=== PATIENT | female | born 1950 | race Caucasian/White ===

== ENCOUNTER 2023-09-16 13:31 | Emergency (ER) | payer OTHER, SELFPAY ==
[2023-09-16 13:36] VITALS: BP 117/63
--- NOTE | 2023-09-16 17:05 | ED.GENMED ---
History of Present Illness
General
Chief Complaint: Eye Problems
Time Seen by Provider: 09/16/23 16:52
Travel History
Have you had any contact with someone who has COVID-19?: No
Do you have any symptoms of coronavirus? Fever > 100 degrees, chills, cough, shortness of breath, sore throat, loss of taste or smell, muscle aches, or headache?: No
History of Present Illness
History of Present Illness:
73-year-old female with history of hypertension, hyperlipidemia, coronary artery disease status post stent, and [id number] diabetes presents to the emergency department for evaluation of intermittent episodes of left eye visual blurriness
ongoing for the past 2 months. She estimates having less than 1 episode per week but they have increased recently. Saw her lobbyist today and was referred to the emergency department for stroke evaluation. Denies any symptoms at present.
No headaches, diplopia, extremity paresthesias, or speech difficulty
Past History
Past History
ED Past Medical History: CAD, Hypercholesterolemia, IA (10 year ago) and Other (Seasonal allergies)
ED Past Surgical History: Cardiac (PTCA with stent), Gynecological (Tubal ligation) and Orthopedic (Left rotator cuff repair)
Social History
Tobacco: Non-smoker
Alcohol: None
Personal:
Living: with family
Employment: Employed
Family History
Family History: CAD
Review of Systems
Review of Systems
Allergies reviewed?: Yes
All Other Systems: ROS reviewed and negative except as documented in HPI and ROS
Phy Exam
Physical Exam
Physical Exam:
GEN: Well appearing, NAD, WDWN
HEENT: Pupils dilated bilaterally, residual from lobbyist office, oral mucosa moist, no scleral icterus, no nasal congestion
Cardiac: Regular rate
Lung: No respiratory distress, no tachypnea
MSK: No gross deformity or injuries
Skin: Good color, no pallor or jaundice, no rashes
Neuro: AO x3; CN II-XII grossly intact. BUE strength 5/5 in all rodriguez, sensation intact and symmetric. BLE strength 5/5 in all rodriguez, sensation intact and symmetric
Psych: Calm, cooperative
Course
Orders/Labs/Results
Orders:
Orders
09/16/23 17:05
CT Head & Neck Angio W/wo IV Urgent
Comment:
Reason For Exam: L eye amaurosis
09/16/23 17:22
Complete Blood Count/With Diff Urgent
Comprehensive Metabolic Panel Urgent
Abnormal Lab Results
09/16/23
17:22
MCHC 32.8 L g/dL
(33.0-37.0)
BUN 33 H mg/dl
(7-17)
Glucose 118 H mg/dl
(70-99)
Calcium 10.3 H mg/dl
(8.4-10.2)
09/16/23 17:22
09/16/23 17:22
Vital Signs
Initial and Last Documented VS:
Initial Vital Signs
Temp Pulse Resp BP Pulse Ox
99.5 F 66 18 117/63 97
09/16/23 13:36 09/16/23 13:36 09/16/23 13:36 09/16/23 13:36 09/16/23 13:36
Last Documented Vital Signs
Temp Pulse Resp BP Pulse Ox
99.5 F 55 18 134/68 100
09/16/23 13:36 09/16/23 19:16 09/16/23 19:16 09/16/23 19:16 09/16/23 19:16
MDM/Problems Addressed
MDM/Problems Addressed:
No clinically significant carotid stenosis noted on imaging. Highly unlikely that the patient's presentation represents true amaurosis fugax given lack of visual loss and simply blurry vision. She has no diplopia concerning for intracranial
aneurysm and no headaches. Do not feel that there is any need for hospital admission particular given that she is on antiplatelets and statins at this point. Will recommend outpatient primary care follow-up to discuss potential benefit of brain
MRI for further workup of her intermittent unilateral blurry vision
*Critical Care Note
Total Time (30-74mins, 75-104mins- exclusive of procedures): Not Applicable
ED Attending Note
-
Portions of this chart may have been created with voice recognition software.� Occasional wrong word or��sound alike� substitutions may have occurred due to the inherent limitations of voice recognition software.
Discharge Plan
Departure
Patient Disposition: Home (Routine Discharge)
Date of Disposition: 09/16/23
Time of Disposition: 19:07
Patient with high blood pressure during this ER visit?: No
Discharge Problem:
Blurred vision, left eye
Prescriptions:
No Action
multivitamin [Daily Multiple] 1 EACH tablet
1 ea PO DAILY
Apple Cider Vinegar
450 mg PO BID
atorvastatin [Lipitor] 40 MG tablet
40 mg PO HS
metformin 500 MG tablet
500 mg PO BID
aspirin 325 MG tablet
325 mg PO HS
lisinopril 20 MG tablet
20 mg PO HS
acetaminophen [Tylenol Arthritis] 650 MG tablet extended release
2 mg PO HS
zinc 50 MG tablet
50 mg PO DAILY
latanoprost (PF) 7.5 ML drops
1 drp BOTH EYES HS
magnesium oxide 400 MG tablet
400 mg PO DAILY
Brimonidine Tartrate
1 drp BOTH EYES BID
Cinnamon
1,000 mg PO BID
Tumeric/Ging/Paxton/Oreg/Capryl [Candicidal Capsule] 1 EACH Capsule
1,000 mg PO BID
Vitamin C:
1,000 mg PO DAILY
fluoxetine 20 MG capsule
40 mg PO QPM
acetaminophen 325 MG tablet
650 mg PO Q4HPRN PRN (Reason: mild pain) 0RF
docusate sodium 100 MG capsule
100 mg PO BID 0RF
fluoxetine 20 MG capsule
40 mg PO QPM 0RF
hydromorphone [Dilaudid] 2 MG tablet
2 mg PO Q6 Qty: 10 0RF
ibuprofen 600 MG tablet
600 mg PO Q6 Qty: 60 0RF
Referrals:
Darius Barrera CRNP [Family Provider] -
Activity Restrictions/Additional Instructions:
There is no evidence for narrowed carotid arteries on your imaging. It is unlikely that your symptoms are caused by a neurovascular problem. If the symptoms continue please follow-up with your primary care physician for a brain MRI
Interventions
Interventions:
*Nursing Disposition Last Done: 09/16/23 19:16
Discharge Date and Time
Discharge Date/Time: 09/16/23 19:16
Print Language: GIBRALTARIAN
[2023-09-16 17:36] LABS: % Basophils 0.5 % (0-2); % Eosinophils 1.6 % (0-6); % Immature Granulocytes 0.3 % (0-0.5); % Lymphocytes 28.1 % (20.5-51.1); % Monocytes 5.7 % (1.7-9.3); % Neutrophils 63.8 % (42.2-75.2); Absolute Basophils 0.1 10^3/uL (0-0.2); Absolute Eosinophils 0.2 10^3/uL (0-0.7); Absolute Lymphocytes 2.8 10^3/uL (1.2-3.4); Absolute Monocytes 0.6 10^3/uL (0.1-0.6); Absolute Neutrophils 6.4 10^3/uL (1.4-6.5); Hematocrit 40.8 % (37.0-47.0); Hemoglobin 13.4 g/dL (12.0-16.0); Mean Corp Hgb Conc. 32.8 g/dL (33.0-37.0); Mean Corpuscular Hgb 28.9 pg (27.0-31.0); Mean Corpuscular Volume 88.1 fL (81.0-99.0); Mean Platelet Volume 8.4 fL (7.4-10.4); Nucleated Red Blood Cells % 0 %; Platelet Count 324 10^3/uL (130-400); Red Blood Cell Count 4.63 10^6/uL (4.20-5.40); Red Cell Dist. Width 14.3 % (11.5-14.5)
[2023-09-16 17:49] LABS: ALT (SGPT) 23 U/L (0-35); AST (SGOT) 33 U/L (14-36); Albumin 4.6 g/dl (3.5-5.0); Alkaline Phosphatase 97 U/L (38-126); Blood Urea Nitrogen 33 mg/dl (7-17); Calcium 10.3 mg/dl (8.4-10.2); Carbon Dioxide 25 mmol/L (22-30); Chloride 105 mmol/L (98-107); Glucose 118 mg/dl (70-99); Potassium 5.1 mmol/L (3.5-5.1); Sodium 139 mmol/L (135-145); Total Bilirubin 0.4 mg/dl (0.2-1.3); Total Protein 7.5 g/dl (6.3-8.2); eGFR > 60.00
[2023-09-16 19:16] VITALS: BP 134/68
== END 2023-09-16 19:16 | disposition home or self-care (01) ==
LOC: EMR 13:31
PROVIDERS: Physician Assistant; EMERGENCY PHYSICIAN Student in an Organized Health Care Education/Training Program; FAMILY PHYSICIAN Nurse Practitioner Family; REFERRING PHYSICIAN Internal Medicine Interventional Cardiology
DX: H53.8 Other visual disturbances (principal); I10 Essential (primary) hypertension; E78.00 Pure hypercholesterolemia, unspecified; I25.10 Atherosclerotic heart disease of native coronary artery without angina pectoris; E11.9 Type 2 diabetes mellitus without complications
CPT/HCPCS: 99285; 70496; 70498; 80053; 85025; Q9967